=== PATIENT | female | born 1945 | race Caucasian/White ===

== ENCOUNTER 2017-01-03 06:57 | Inpatient (IN) | payer MEDICARE, BC ==
[2016-12-23 13:47] LABS: BASOPHILS 0.5 %; BASOPHILS ABSOLUTE 0.04 10/3/uL (0.0-0.16); EOSINOPHILS 1.1 %; HEMATOCRIT 38.4 % (36.0-48.0); HEMOGLOBIN 11.7 g/dL (12.0-16.0); IMMATURE GRANULOCYTES 0.2 %; IMMATURE GRANULOCYTES ABSOLUTE 0.02 10/3/uL (0.0-0.11); LYMPHOCYTES 28.3 %; LYMPHOCYTES ABSOLUTE 2.51 10/3/uL (0.67-4.30); MEAN CORPUS HGB CONC 30.5 g/dL (32.0-36.0); MEAN CORPUSCULAR HEMOGLOB 33.8 pg (26.0-34.0); MEAN PLATELET VOLUME 10.7 fL (9.2-13.0); MONOCYTES 8.1 %; MONOCYTES ABSOLUTE 0.72 10/3/uL (0.21-1.20); NEUTROPHILS 61.8 %; NEUTROPHILS ABSOLUTE 5.47 10/3/uL (2.02-8.40); RBC DISTRIBUTION WIDTH 14.9 % (12.0-16.0); RED CELL COUNT 3.46 10/6/uL (4.0-5.6)
[2016-12-23 13:48] LABS: MANUAL DIFF NO %; PLATELET COUNT 212 10/3/uL (150-400); WHITE BLOOD CELLS 8.9 10/3/uL (4.5-10.5)
[2016-12-23 13:53] LABS: ASCORBIC ACID (UR NOT ORDER) NEG (NEG); BILIRUBIN, URINE NEGATIVE (NEG); KETONE, URINE NEGATIVE (NEG); LEUKOCYTE ESTERASE(NOT OR NEG (NEG); WBC (NOT ORDERED) (RFLEX) 2 (0-5)
[2016-12-23 13:54] LABS: INTERNATIONAL NORMAL RATI 1.3 UNITS (-)
[2016-12-23 13:55] LABS: PROTIME (NOT ORD) 16.1 SEC (12.0-14.5)
[2016-12-23 14:03] LABS: B NATRIURETIC PEPTIDE (BNP) 560.7 PG/ML (< 100.0)
[2016-12-23 14:05] LABS: PLATELET ESTIMATE ADQ (ADEQUATE)
[2016-12-23 14:14] LABS: BUN (BLOOD UREA NITROGEN) 41 MG/DL (6-23); CALCIUM, SERUM 8.3 MG/DL (8.5-10.4); CHLORIDE, SERUM 104 MMOL/L (96-112); CO2 (CARBON DIOXIDE) 25 MMOL/L (24-34); GFR AFRICAN AMERICAN 19 ML/MIN (>=60); GFR NON AFRICAN AMERICAN 17 ML/MIN (>=60); GLUCOSE, SERUM 94 MG/DL (60-99); POTASSIUM, SERUM 4.9 MMOL/L (3.5-5.3); SODIUM, SERUM 138 MMOL/L (135-148)
[2016-12-23 21:28] LABS: GLYCOHEMOGLOBIN (HbA1c) 4.9 % (4.7-6.1)
[~2017-01-03] VITALS: Ht 165.1 cm; Wt 75.7 kg
--- NOTE | ~2017-01-03 | OP ---
Record Of Operation [address] [place]. [address] NAME: YASMANY JALLOH : 41 STATUS : ADM IN PAT#: [id number] AGE: 71 ADM/REG DATE : 01/03/17 MR#: [id number] REPORT SERV DATE: 01/04/17 DICTATED BY: MICHAEL REGAN DATE: 01/03/17 REPORT STATUS : Draft TRANSCRIBED BY: MODL DATE: 01/03/17 DATE OF PROCEDURE: 01/03/2017 PREOPERATIVE DIAGNOSES: 1. Aortic valve stenosis. 2. Acute on chronic diastolic heart failure. 3. Chronic persistent atrial fibrillation. 4. History of pulmonary embolism with DVT. 5. Chronic kidney disease, stage IV. 6. History of nephrectomy for metastatic renal cell carcinoma. 7. Type 2 xsv-nyeqddd-fpxevgixg diabetes mellitus. 8. Hypertension. 9. Hypercholesterolemia. 10.Coronary artery disease. 11.History of CSF otorrhea. POSTOPERATIVE DIAGNOSES: 1. Aortic valve stenosis. 2. Acute on chronic diastolic heart failure. 3. Chronic persistent atrial fibrillation. 4. History of pulmonary embolism with DVT. 5. Chronic kidney disease, stage IV. 6. History of nephrectomy for metastatic renal cell carcinoma. 7. Type 2 ign-gwvzhir-doutcarvm diabetes mellitus. 8. Hypertension. 9. Hypercholesterolemia. 10.Coronary artery disease. 11.History of CSF otorrhea. PROCEDURE PERFORMED: 1. Right transfemoral using a 26 mm S3 pericardial valve (Zeke). 2. Right femoral artery ProGlide closure of arteriotomy site x2. 3. Left internal jugular placement of temporary ventricular pacemaker. 4. Aorto right iliofemoral angiogram. 5. Transthoracic echocardiography. SURGEONS: 1. Michael Regan M.D. 2. Mina Polo M.D. 3. Chip Doll M.D. PHOTO TECH: Elfego Gutierrez M.D., Ph.D, F.A.C.C. PRIMARY PHOTO TECH: Bonny Watkins M.D. PRIMARY PHYSICIAN: Jay Quinn M.D. Record Of Operation [address] [place]. [address] NAME: YASMANY JALLOH : 41 STATUS : ADM IN PAT#: [id number] AGE: 71 ADM/REG DATE : 01/03/17 MR#: [id number] REPORT SERV DATE: 01/04/17 DICTATED BY: MICHAEL REGAN DATE: 01/03/17 REPORT STATUS : Draft TRANSCRIBED BY: ZULEYKA DATE: 01/03/17 AIRLINE PILOT FLIGHT INSTRUCTOR: Bishnu De Luna M.D. INDICATIONS: This is a very pleasant 71-year-old female, who has multiple medical issues as listed above. She has a chronic CSF leak with otorrhea bilaterally. Plans are for surgery. She has been having worsening dyspnea with exertion and fatigue and underwent repeat echocardiography which demonstrated progression of her aortic valve stenosis too severe, with a valve area of 0.5 sq cm and mean gradient of 25 mmHg. Because of her multiple medical other problems, she was referred for evaluation for aortic valve replacement. We saw the patient, and she was judged to be at elevated risk for aortic valve replacement. Her SCS predicted risk of mortality was 9.2%, morbidity-mortality of 38%. The patient is at high risk, in addition, to frailty and weakness, placed this patient in unacceptable risk for surgical aortic valve replacement. She was offered TAVR. After discussing operations, indication, risks with the patient and her family, they wished to proceed. FINDINGS AT OPERATION: 1. Rapid ventricular pacing time is 24 seconds. 2. Time of TAVR deployment was 1522. 3. Cardiac output pre-deployment 2.3, post deployment 3.2 liters per minute. 4. Pre deployment valve area of 0.22. Post deployment valve area 1.82 sq cm. 5. Pre-implant aortic pressures: Systolic 98, diastolic 57, mean 74 mmHg. Post-implant aortic pressures: Systolic 116, diastolic 59, mean 81 mmHg. 6. Pre-implant aortic valve gradient mean 38, peak 57 mmHg. Post-implant AV gradient mean 4, peak 5 mmHg. 7. Total contrast volume used 60 mL. 8. Fluro time was 17.7 minutes. ESTIMATED BLOOD LOSS: Less than 50 mL. Total mGy use 945. AI index was 40. PATHOLOGIC SPECIMENS: None. DESCRIPTION OF PROCEDURE: The patient was brought to the operating suite from Phase II where she is receiving preoperative fluids. The left IJ catheter was placed by Dr. Smith along with the Enterprise in the right IJ. The left IJ was for temporary pacemaker wire placement. The patient was transferred to the hybrid operating table and made comfortable. She was then sedated using Diprivan and monitored anesthesia care. The left IJ ventricular pacing catheter was advanced into the ventricle and positioned. Output thresholds were acceptable and the lead secured in place. The patient's abdomen, groin, and legs were prepped with Hibiclens and ChloraPrep and draped with Ioban sterile sheets. Micro needle puncture of the left femoral artery and right femoral artery was performed. Micro catheter placement was performed of all 3 vessels and confirmatory angiography was performed to confirm access. Then, each catheterization site had a 6-Icelandic introducer Record Of Operation [facility] [address] [facility] [place]. [address] NAME: YASMANY JALLOH : 41 STATUS : ADM IN [facility]#: [id number] AGE: 71 ADM/REG DATE : 01/03/17 MR#: [id number] REPORT SERV DATE: 01/04/17 DICTATED BY: MICHAEL REGAN DATE: 01/03/17 REPORT STATUS : Draft TRANSCRIBED BY: MODManda DATE: 01/03/17 placed over guidewire. Reason for two introducers on the left side was for two pigtail catheter placements to reduce need for contrast for positioning the valve. The two pigtail catheters were then advanced up to the left femoral artery sheath into the ascending aorta position in the non and right coronary cusps. We then confirmed deployment angles for the operation. A J-wire was placed up the right femoral artery sheath and the sheath was removed. Two ProGlide closure devices were then placed in the right femoral artery and secured. A 6-Icelandic sheath was then placed over the guidewire into the right femoral artery and then an utility catheter was then advanced up over the J-wire into the ascending aorta. The J- wire was removed and the Lunderquist wire placed in the ascending aorta. Next, the Reeves introducer sheath was advanced into the descending thoracic aorta under fluoroscopic visualization. Heparin had been administered by Anesthesia and ACT was acceptable. Then, a L1 catheter was advanced over the Lunderquist wire into the ascending aorta and a Lunderquist wire removed. Straight wire was then placed through the AL1 catheter advanced into the left ventricle through the stenotic valve. The valve was then crossed with a catheter, and this was exchanged for a pigtail catheter in the left ventricle. Then simultaneous pressure measurements were made in the left ventricle and ascending aorta and recorded. Next, the extra stiff wire was advanced up the right femoral pigtail catheter into the left ventricle. The pigtail catheter was then removed. The Reeves 26 mm S3 valve was brought up to the field on the delivery system. Visual confirmation of orientation of the valve was performed. The valve delivery system and valve were then advanced up the sheath into the descending thoracic aorta. The balloon was then backed onto the valve delivery system. We then advanced the delivery system up over the arch of the aorta, into the ascending aorta. At this time, a time-out was made for confirmation of deployment steps and individuals. Once this was accomplished, the valve delivery system was backed onto the limerock tower loader. The prosthetic valve on the delivery system was then placed across the patient's siletz tribe aortic valve. Positioning the valve was then achieved. The pigtail catheters were in place, and blush aortography and contrast aortography was used to confirm positioning the valve. Rapid ventricular pacing was performed and then the valve was deployed into the position. The valve delivery system was then backed into the descending thoracic aorta. The extra stiff wire was left in place. Echocardiography performed by Dr. Gutierrez demonstrating no evidence of perivalvular leak. The valve delivery system was then brought out of the right femoral artery sheath. One of the two pigtail catheters which had been backed into the ascending aorta were removed over guidewire. Next, the sheath was removed from the right femoral artery, and two ProGlide closure systems placed earlier were secured and fully deployed. There was good hemostasis of the right femoral arterial stick site. The remaining pigtail catheter was brought down to the aortic bifurcation and right iliofemoral angiogram was performed and confirmed no evidence of extravasation at the arteriotomy site or limitation of flow down the right leg. Record Of Operation [facility] [address] [facility] [place]. [address] NAME: YASMANY JALLOH : 41 STATUS : ADM IN [facility]#: [id number] AGE: 71 ADM/REG DATE : 01/03/17 MR#: [id number] REPORT SERV DATE: 01/04/17 DICTATED BY: MICHAEL REGAN DATE: 01/03/17 REPORT STATUS : Draft TRANSCRIBED BY: MODL DATE: 01/03/17 We then attempted deployment of a single ProGlide in one of the right femoral arterial sheath sites. Briefly, J wire was advanced over the pigtail catheter from the arteriogram. The pigtail catheter was removed, and then the 6-Icelandic introducer removed. The ProGlide was placed in the artery but could not be deployed successfully. At this point, we just replaced the 6-Icelandic introducer sheath and secured this to the patient. We then removed the Enterprise-Lupe catheter and left the temporary ventricular pacing wire in place. The patient tolerated the procedure well. There were no complications. Sponge and needle counts were correct. DISPOSITION: The patient was taken to the intensive care unit in stable condition with dopplerable pulses in both feet. KEVIN/ZULEYKA Michael Regan M.D. / [id number] CC: Raven Crook M.D. Lisa Gail Carkner, M.D. Dennis Leonard, M.D. Joseph Watlington, M.D.
--- NOTE | ~2017-01-03 | CN ---
Consultation Report [facility] [address] [place]. [address] NAME: YASMANY JALLOH : 41 STATUS : ADM IN [facility]#: [id number] AGE: 71 ADM/REG DATE : 01/03/17 MR#: [id number] REPORT SERV DATE: 01/03/17 DICTATED BY: MORTEZA FREED DATE: 01/03/17 REPORT STATUS : Draft TRANSCRIBED BY: MODL DATE: 01/03/17 CONSULTATION DATE OF CONSULTATION: 01/03/2017 CONSULTING GROUP: [facility]. CHIEF COMPLAINT: Scheduled for TAVR, elevated heart rate, atrial fibrillation with RVR, and hypotension. HISTORY OF PRESENT ILLNESS: Ms. Jalloh is a 71-year-old female who is a patient of Dr. De Luna with CKD, stage 4; history of renal cell carcinoma, status post right nephrectomy in 2005 and the left kidney ablation, all by Dr. Johnson, who has aortic stenosis and was scheduled for TAVR today. Dr. Regan asked me to see the patient for CKD 4 management. The patient is currently on IV fluid lactated Ringer's at 75 mL an hour. She is also getting a Cardene drip for managing blood pressure, acute as well as diltiazem drip for her atrial fibrillation with RVR. Her heart rate is still in the 120s, but her blood pressure has reduced, so I spoke to DONOR SERVICES TECHNICIAN about decreasing the Cardene drip to wean off if okay with Cardiology. She is a good historian, resting in bed, mild nervousness, but otherwise stable. PAST MEDICAL HISTORY: Atrial fibrillation; CKD, stage 4; patient of Dr. De Luna. Right nephrectomy in 2005, left kidney ablation, psoriatic arthritis, some lymph node involvement based on her renal cell carcinoma, and aortic stenosis. FAMILY HISTORY: Father with history of myocardial infarction. SOCIAL HISTORY: Lives in [place], good family support. No tobacco or alcohol use. REVIEW OF SYSTEMS: Positive for nervousness. All other review of systems negative at this time. I spoke to patient and family and DONOR SERVICES TECHNICIAN at the bedside. PHYSICAL EXAMINATION: VITAL SIGNS: Temperature 97.7, pulse of 82, blood pressure 163/71. GENERAL: Alert and oriented x3, no acute distress. EYES: Extraocular movements intact. No conjunctivitis. ENT: [place], dry oropharynx. No facial droop. LYMPH: No supraclavicular or cervical lymphadenopathy. SKIN: No rash or lesions. HEART: S1, S2. Regular. No edema. LUNGS: Clear to auscultation anteriorly. No tachypnea. ABDOMEN: Soft, nontender. Positive bowel sounds. EXTREMITIES AND PSYCH: The patient has a history of psoriatic arthritis. I do not see any Consultation Report [address] [place]. [address] NAME: YASMANY JALLOH : 41 STATUS : ADM IN PAT#: [id number] AGE: 71 ADM/REG DATE : 01/03/17 MR#: [id number] REPORT SERV DATE: 01/03/17 DICTATED BY: MORTEZA FREED DATE: 01/03/17 REPORT STATUS : Draft TRANSCRIBED BY: ZULEYKA DATE: 01/03/17 active joints at this time that are inflamed. PA catheter is in place in the right IJ. She has normal mood and affect. LABS: These are from 12/23; potassium 4.9, creatinine 2.7, BUN 41, calcium 8.3. Her chest x ray, PA and lateral, shows no acute cardiopulmonary disease. ASSESSMENT AND PLAN: Ms. Jalloh is a 71-year-old female with chronic kidney disease, stage 4; patient of Dr. De Luna; aortic stenosis, scheduled for TAVR; atrial fibrillation with rapid ventricular response; history of metastatic renal cell carcinoma with right nephrectomy and left ablation. Renal. The patient is a high risk for contrast-induced nephropathy. I agree with preop IV fluid lactated Ringer at 75 mL an hour. We will check stat labs now. I would recommend changing it to IV fluid normal saline at 75 mL an hour postop for contrast nephropathy prophylaxis. Check urine studies after her procedure. UA, spot urine urea, and spot urine creatinine. Keep Champagne in for strict I's and O's measurement postprocedure. I noticed PA diastolic is 20 and her CVP is about 9, which puts her at euvolemia. Her baseline creatinine is between 2.2-2.6. I discussed with family and patient about careful monitoring of her urine output and kidney function as she is a high risk for contrast-induced nephropathy, which may lead to need for either diuretics, fluids, or dialysis. RENETTA/MODL Morteza Freed M.D. / [id number] CC: Raven Crook M.D.
--- NOTE | ~2017-01-03 | OP ---
Record Of Operation [facility] [address] [place]. [address] NAME: YASMANY JALLOH : 41 STATUS : ADM IN PAT#: [id number] AGE: 71 ADM/REG DATE : 01/03/17 MR#: [id number] REPORT SERV DATE: 01/03/17 DICTATED BY: MINA DIETZ DATE: 01/03/17 REPORT STATUS : Draft TRANSCRIBED BY: MODManda DATE: 01/03/17 DATE OF PROCEDURE: 01/03/2017 PROCEDURE PERFORMED: 1. Transcatheter aortic valve implantation using a 26 mm Reeves Zeke S3 valve via a right transfemoral approach. 2. Temporary transvenous pacemaker placement right internal jugular vein to right ventricle. 3. Iliac angiogram. 4. Transthoracic echocardiogram. 5. ProGlide closure x2, right femoral artery successful. 6. Attempted ProGlide closure left femoral artery unsuccessful. SURGEONS: 1. Christian Regan M.D. 2. Mina Dietz M.D. 3. Chip Doll M.D. METAL DEALER: Arcelia. ECHOCARDIOGRAPHY: Elfego Gutierrez M.D., Ph.D, F.A.C.C. ANESTHESIA: MAC and local. SPECIMEN REMOVED: None. FLUOROSCOPY TIME: 17.7 minutes, mGy 945. CONTRAST: 60 mL nonionic. ESTIMATED BLOOD LOSS: Less than 50 mL. COMPLICATIONS: None. PREOPERATIVE DIAGNOSES: 1. Severe aortic stenosis with aortic valve area 0.5 sq cm. 2. Symptomatic acute on chronic diastolic congestive heart failure. 3. High surgical risk with STS score 9.2% mortality and 37.8% morbidity and mortality. 4. Additional increased surgical risk not reflected in her scores including frailty, very poor strength, and moderate pulmonary hypertension. 5. History of atrial fibrillation. 6. History of deep venous thrombosis and pulmonary thromboembolism. 7. Chronic kidney disease, stage 4. 8. Metastatic renal cell cancer. 9. Cerebrospinal fluid leak persistent. 10.Diabetes mellitus. Record Of Operation [facility] [address] [place]. [address] NAME: YASMANY JALLOH : 41 STATUS : ADM IN PAT#: [id number] AGE: 71 ADM/REG DATE : 01/03/17 MR#: [id number] REPORT SERV DATE: 01/03/17 DICTATED BY: MINA DIETZ DATE: 01/03/17 REPORT STATUS : Draft TRANSCRIBED BY: MODManda DATE: 01/03/17 11.Hypertension. 12.Hyperlipidemia. POSTOPERATIVE DIAGNOSES: 1. Severe aortic stenosis with aortic valve area 0.5 sq cm. 2. Symptomatic acute on chronic diastolic congestive heart failure. 3. High surgical risk with STS score 9.2% mortality and 37.8% morbidity and mortality. 4. Additional increased surgical risk not reflected in her scores including frailty, very poor strength, and moderate pulmonary hypertension. 5. History of atrial fibrillation. 6. History of deep venous thrombosis and pulmonary thromboembolism. 7. Chronic kidney disease, stage 4. 8. Metastatic renal cell cancer. 9. Cerebrospinal fluid leak persistent. 10.Diabetes mellitus. 11.Hypertension. 12.Hyperlipidemia. 13.No significant aortic insufficiency by echo postoperatively. DATA FOR THE VALVE REGISTRY: Time of valve deployment 1522 hours. Total rapid pacing time 24 seconds. Preprocedure mean gradient 38, peak gradient 57, cardiac output of 2.3 L/minute for an aortic valve area of 0.2 sq cm. Postprocedure mean gradient 4, peak gradient 5, cardiac output 3.2 L/minute for aortic valve area of 1.8 sq cm. AI index of 40. BACKGROUND: Ms. Jalloh is a very pleasant 71-year-old, white woman, patient of Dr. Watkins, who has had severe aortic stenosis symptomatic with functional class III diastolic congestive heart failure. She was found to be at high surgical risk with STS score in excess of 9%, mortality of 38% morbidity and mortality. She was seen by two cardiac surgeons, Dr. Regan and Dr. Veloz, who agreed that she was at high surgical risk. She had additional factors not reflected in her scores including frailty, very poor strength, and moderate pulmonary hypertension. She was offered transcatheter aortic valve implantation. The risks, benefits, and complications were discussed with Ms. Jalloh and her family. She understood them and those of her alternatives and wished to proceed. Questions were answered. TECHNIQUE: After informed written consent was obtained from Ms. Jalloh, she was brought to the hybrid suite on the afternoon of 01/03/2017 in the fasting state. The time-out was performed and correct patient and operative plan were confirmed. The groins were prepped and draped in usual sterile fashion. Local anesthesia was accomplished with 1% lidocaine. Using modified Seldinger technique and a micropuncture set, 6-Salvadorean sheath was placed in the left femoral artery, a second 6-Salvadorean sheath was placed in the left femoral artery, and a 6-Salvadorean sheath was placed in the right femoral artery all with excellent blood return. Femoral angiograms using the micro sheath revealed good sticks in the common femoral artery thought suitable for closure. The inferiormost one on the left was close to the bifurcation. The sheaths were double flushed and left in place. A 5-Salvadorean balloon-tipped pacer was placed from the right IJ introducer sheath to the right ventricle under fluoroscopic guidance. Threshold was checked, which was less than 1 milliamp. This was Record Of [address] [place]. [address] NAME: YASMANY JALLOH : 41 STATUS : ADM IN [facility]#: [id number] AGE: 71 ADM/REG DATE : 01/03/17 MR#: [id number] REPORT SERV DATE: 01/03/17 DICTATED BY: MINA DIETZ DATE: 01/03/17 REPORT STATUS : Draft TRANSCRIBED BY: ZULEYKA DATE: 01/03/17 then set aside. Next, two pigtail catheters, the straight and an angled were placed in the non and right coronary cusps respectively. The valve angle was obtained. Using the two pigtail catheters and the heavy calcification visible under fluoroscopy. Next, ProGlide closure devices were placed using a pre-close technique at 10 o'clock and 2 o'clock in the usual fashion. The sheath was then exchanged for the Reeves sheath, which was double flushed and left in place. Next, the 6-Salvadorean AL1 diagnostic catheter was advanced to the central aorta under fluoroscopic guidance. The catheter was withdrawn, catheter double flushed. Pressure recording was obtained. The patient was heparinized to an ACT of greater than 250. Next, a straight guidewire was used and the aortic valve was crossed with relative ease and the catheter was then placed in the LV position, and using an exchange J guidewire, the catheter was exchanged for a pigtail catheter. Simultaneous LV and aortic pressures were then obtained. Cardiac output was performed. Valve area was determined. Next, a preshaped extra stiff wire was placed in the left ventricle and the catheter was withdrawn from the body. When all was in readiness, the 26 mm Reeves Zeke S3 valve was prepped and brought to the table, orientation was confirmed. The valve was then advanced to the descending aorta under fluoroscopic guidance. The balloon was then brought back to the valve in the usual fashion. Next, the valve was advanced around the aortic arch using the flex device on the introducing system and brought to the ascending aorta. The valve was then brought across the aortic valve and into position. The pusher was brought back. Fine adjustment was performed using rapid pacing and power injection. A single ascending aortogram was performed which demonstrated good valve position. When all was in readiness, the sequence was commenced. Respirations were held. Rapid pacing was performed. The pressure fell. The valve was inflated with complete balloon and valve inflation. The balloon was then deflated. Pacing was ceased. Respirations were resumed. There were good valve position and good recovery of pressure. The pigtail catheters were then brought back. Transthoracic echocardiography was performed, which revealed no significant aortic insufficiency and good valve function. Next, the pigtail catheter was replaced and simultaneous LV and aortic pressures were obtained. There was no significant gradient. Pullback recording was obtained and the pressures matched. An ascending aortogram was not performed due to contrast dye limitation with chronic kidney disease. One of the pigtail catheter was removed from body over a guidewire. The other was brought to the descending aorta just above the iliac bifurcation. The Reeves sheath was removed and the ProGlide sutures were tied with good hemostasis. There was no bleeding and no hematoma. Iliac angiogram was performed which demonstrated good patency of the iliofemoral system on the right with no evidence of dissection or distal embolization. The pigtail catheter was then disengaged from the body over a guidewire. ProGlide sutures were attempted on the left but were unsuccessful. The sheaths were then left in place for removal by nursing personnel later via manual compression. The patient tolerated the procedure well without apparent complication. She was then returned to her room in good condition for access management. Recommendations were for resumption of her Eliquis anticoagulation and possible single antiplatelet agent and echocardiographic followup. TRACI/ZULEYKA Mina Dietz, Record Of Operation [address] [place]. [address] NAME: YASMANY JALLOH : 41 STATUS : ADM IN PAT#: [id number] AGE: 71 ADM/REG DATE : 01/03/17 MR#: [id number] REPORT SERV DATE: 01/03/17 DICTATED BY: MINA DIETZ DATE: 01/03/17 REPORT STATUS : Draft TRANSCRIBED BY: ZULEYKA DATE: 01/03/17 Raven / [id number] CC: Raven Crook M.D.
[~2017-01-03 06:57] MED LIST: ACETAMINOPHEN PO; AFINITOR10 MG PO; ARIXTRA SC; ARIXTRA2.5 SC; ARIXTRA7.5 SC; ASAB PO; ASAEC PO; C5 PO; CALTRA600D PO; CARDCD240 PO; CIP5 PO; CRESTOR10 PO; DEMA20 PO; ELIQUIS 2.5 MG2.5 MG PO; ELIQUIS 5 MG TAB5 MG PO; GLUCXL2.5 PO; GLUCXL5 PO; HYDROCODONE PO; INLYTA5 MG PO; IRON325 MG PO; JANTOVEN6 MG PO; KLOR-CON 1010 MEQ PO; KLOR-CON M2020 MEQ PO; L40 PO; LAN125 PO; LIPITOR40 PO; LOP25 PO; LOP50 PO; LORTAB 5 PO; LOVENOX1C SC; LOVENOX80 SC; MICARDIS HC1 PO; MICARDIS40 PO; MIRALAXPKT PO; MULTIPLE VIT PO; NORCO1 TAB PO; OXYIR5 MG PO; PCET PO; PR25 PO; SELENIUM PO; SPIRO25 PO; T PO; TOPROL XL200 MG PO; TOPXL100 PO; TRANDAT100 PO; VITAMIN D1000 UNI1 PO; VOTRIENT200 MG PO; ZOFRAN4 PO; [UNRECOGNIZED DRUG - OTHER]
[2017-01-03 12:49] LABS: BASOPHILS 0.2 %; BASOPHILS ABSOLUTE 0.01 10/3/uL (0.0-0.16); EOSINOPHILS 1.3 %; EOSINOPHILS ABSOLUTE 0.07 10/3/uL (0.0-0.53); IMMATURE GRANULOCYTES 0.2 %; IMMATURE GRANULOCYTES ABSOLUTE 0.01 10/3/uL (0.0-0.11); LYMPHOCYTES ABSOLUTE 0.97 10/3/uL (0.67-4.30); MANUAL DIFF NO %; MEAN CORPUS HGB CONC 30.3 g/dL (32.0-36.0); MEAN CORPUSCULAR HEMOGLOB 33.8 pg (26.0-34.0); MEAN CORPUSCULAR VOLUME 111.5 fL (80-100); MEAN PLATELET VOLUME 10.6 fL (9.2-13.0); MONOCYTES ABSOLUTE 0.54 10/3/uL (0.21-1.20); NEUTROPHILS 70.3 %; PLATELET COUNT 128 10/3/uL (150-400); RBC DISTRIBUTION WIDTH 15.9 % (12.0-16.0); RED CELL COUNT 2.96 10/6/uL (4.0-5.6); WHITE BLOOD CELLS 5.4 10/3/uL (4.5-10.5)
[2017-01-03 13:02] LABS: A/G RATIO 0.9 (0.7-1.9); ALBUMIN 2.9 G/DL (3.5-5.0); ALKALINE PHOSPHATASE 84 U/L (45-117); BUN (BLOOD UREA NITROGEN) 30 MG/DL (6-23); CALCIUM, SERUM 8.9 MG/DL (8.5-10.4); CHLORIDE, SERUM 112 MMOL/L (96-112); CO2 (CARBON DIOXIDE) 25 MMOL/L (24-34); CREATININE 1.81 MG/DL (0.55-1.02); GFR AFRICAN AMERICAN 32 ML/MIN (>=60); GFR NON AFRICAN AMERICAN 27 ML/MIN (>=60); GLOBULIN 3.2 G/DL (2.5-4.1); GLUCOSE, SERUM 83 MG/DL (60-99); PHOSPHORUS, SERUM 4.3 MG/DL (2.5-4.5); POTASSIUM, SERUM 4.7 MMOL/L (3.5-5.3); SGOT(AST) 10 U/L (5-40); SGPT(ALT) 13 U/L (5-65); SODIUM, SERUM 142 MMOL/L (135-148); TOTAL BILIRUBIN 0.8 MG/DL (0-1.2); TOTAL PROTEIN 6.1 G/DL (6.0-8.5)
[2017-01-03 13:04] LABS: INTERNATIONAL NORMAL RATI 1.1 UNITS (-); PARTIAL THROMBO TIME 33.3 SEC (22.5-37.2); PROTIME (NOT ORD) 13.8 SEC (12.0-14.5)
[2017-01-03 13:24] LABS: PLATELET ESTIMATE SLT DEC (ADEQUATE); POIKILOCYTOSIS 1+ (5-10/OIF) (0-5/OIF); TEARDROP SHAPED RBCS OCC (0-2/OIF)
[2017-01-03 17:09] LABS: HEMOGLOBIN 8.3 g/dL (12.0-16.0); PLATELET COUNT 105 10/3/uL (150-400)
[2017-01-03 17:10] LABS: HEMATOCRIT 27.5 % (36.0-48.0)
[2017-01-03 17:16] LABS: INTERNATIONAL NORMAL RATI 1.2 UNITS (-); PARTIAL THROMBO TIME 35.6 SEC (22.5-37.2); PROTIME (NOT ORD) 15.1 SEC (12.0-14.5)
[2017-01-03 17:22] LABS: BUN (BLOOD UREA NITROGEN) 28 MG/DL (6-23); CALCIUM, SERUM 8.3 MG/DL (8.5-10.4); CHLORIDE, SERUM 113 MMOL/L (96-112); CO2 (CARBON DIOXIDE) 25 MMOL/L (24-34); CREATININE 1.78 MG/DL (0.55-1.02); GFR AFRICAN AMERICAN 32 ML/MIN (>=60); GFR NON AFRICAN AMERICAN 28 ML/MIN (>=60); GLUCOSE, SERUM 85 MG/DL (60-99); POTASSIUM, SERUM 5.2 MMOL/L (3.5-5.3); SODIUM, SERUM 143 MMOL/L (135-148)
[2017-01-03 22:34] LABS: ASCORBIC ACID (UR NOT ORDER) NEG (NEG); BILIRUBIN, URINE NEGATIVE (NEG); KETONE, URINE NEGATIVE (NEG); WBC (NOT ORDERED) (RFLEX) 1 (0-5)
[2017-01-03 22:35] LABS: LEUKOCYTE ESTERASE(NOT OR TRACE (NEG)
[2017-01-03 22:54] LABS: CREATININE, URINE 60.2 MG/DL
[2017-01-04 03:39] LABS: BASOPHILS 0.2 %; BASOPHILS ABSOLUTE 0.01 10/3/uL (0.0-0.16); EOSINOPHILS 0.4 %; EOSINOPHILS ABSOLUTE 0.02 10/3/uL (0.0-0.53); HEMATOCRIT 26.8 % (36.0-48.0); HEMOGLOBIN 8.1 g/dL (12.0-16.0); IMMATURE GRANULOCYTES 0.2 %; IMMATURE GRANULOCYTES ABSOLUTE 0.01 10/3/uL (0.0-0.11); LYMPHOCYTES 14.4 %; LYMPHOCYTES ABSOLUTE 0.67 10/3/uL (0.67-4.30); MEAN CORPUS HGB CONC 30.2 g/dL (32.0-36.0); MEAN CORPUSCULAR HEMOGLOB 34.3 pg (26.0-34.0); MEAN CORPUSCULAR VOLUME 113.6 fL (80-100); MEAN PLATELET VOLUME 10.2 fL (9.2-13.0); MONOCYTES 11.4 %; MONOCYTES ABSOLUTE 0.53 10/3/uL (0.21-1.20); NEUTROPHILS 73.4 %; NEUTROPHILS ABSOLUTE 3.41 10/3/uL (2.02-8.40); PLATELET COUNT 100 10/3/uL (150-400); RBC DISTRIBUTION WIDTH 16.1 % (12.0-16.0); WHITE BLOOD CELLS 4.7 10/3/uL (4.5-10.5)
[2017-01-04 03:40] LABS: MANUAL DIFF NO %; RED CELL COUNT 2.36 10/6/uL (4.0-5.6)
[2017-01-04 03:46] LABS: INTERNATIONAL NORMAL RATI 1.2 UNITS (-)
[2017-01-04 03:52] LABS: CHLORIDE, SERUM 113 MMOL/L (96-112); CO2 (CARBON DIOXIDE) 21 MMOL/L (24-34); CREATININE 1.84 MG/DL (0.55-1.02); GFR AFRICAN AMERICAN 31 ML/MIN (>=60); GFR NON AFRICAN AMERICAN 27 ML/MIN (>=60); GLUCOSE, SERUM 77 MG/DL (60-99); POTASSIUM, SERUM 5.6 MMOL/L (3.5-5.3); SODIUM, SERUM 144 MMOL/L (135-148)
[2017-01-04 03:53] LABS: BUN (BLOOD UREA NITROGEN) 32 MG/DL (6-23)
[2017-01-04 03:59] LABS: PLATELET ESTIMATE SLT DEC (ADEQUATE)
[2017-01-04 12:00] LABS: HEMATOCRIT 25.9 % (36.0-48.0); HEMOGLOBIN 7.7 g/dL (12.0-16.0)
[2017-01-04 13:36] LABS: BUN (BLOOD UREA NITROGEN) 34 MG/DL (6-23); CHLORIDE, SERUM 113 MMOL/L (96-112); CO2 (CARBON DIOXIDE) 23 MMOL/L (24-34); CREATININE 2.06 MG/DL (0.55-1.02); GFR AFRICAN AMERICAN 27 ML/MIN (>=60); GFR NON AFRICAN AMERICAN 23 ML/MIN (>=60); GLUCOSE, SERUM 103 MG/DL (60-99); POTASSIUM, SERUM 4.8 MMOL/L (3.5-5.3); SODIUM, SERUM 143 MMOL/L (135-148)
[2017-01-04 16:14] LABS: HEMATOCRIT 26.3 % (36.0-48.0); HEMOGLOBIN 7.6 g/dL (12.0-16.0)
[2017-01-04 16:24] LABS: POTASSIUM, SERUM 4.9 MMOL/L (3.5-5.3)
[2017-01-04 20:49] LABS: RETICULOCYTE COUNT 3.3 % (0.5-2.5); RETICULOCYTE COUNT ABSOLUTE 72.6 10/3/uL (20.2-119.8)
[2017-01-04 21:50] LABS: FOLATE 6.2 NG/ML (>5.2)
[2017-01-05 04:03] LABS: BASOPHILS 0.2 %; BASOPHILS ABSOLUTE 0.01 10/3/uL (0.0-0.16); EOSINOPHILS 1.9 %; EOSINOPHILS ABSOLUTE 0.08 10/3/uL (0.0-0.53); HEMATOCRIT 24.6 % (36.0-48.0); HEMOGLOBIN 7.4 g/dL (12.0-16.0); IMMATURE GRANULOCYTES 0.2 %; IMMATURE GRANULOCYTES ABSOLUTE 0.01 10/3/uL (0.0-0.11); LYMPHOCYTES 16.6 %; LYMPHOCYTES ABSOLUTE 0.71 10/3/uL (0.67-4.30); MEAN CORPUS HGB CONC 30.1 g/dL (32.0-36.0); MEAN CORPUSCULAR HEMOGLOB 34.4 pg (26.0-34.0); MEAN CORPUSCULAR VOLUME 114.4 fL (80-100); MEAN PLATELET VOLUME 10.9 fL (9.2-13.0); MONOCYTES 12.4 %; MONOCYTES ABSOLUTE 0.53 10/3/uL (0.21-1.20); NEUTROPHILS 68.7 %; NEUTROPHILS ABSOLUTE 2.95 10/3/uL (2.02-8.40); PLATELET COUNT 96 10/3/uL (150-400); RBC DISTRIBUTION WIDTH 16.3 % (12.0-16.0); RED CELL COUNT 2.15 10/6/uL (4.0-5.6); WHITE BLOOD CELLS 4.3 10/3/uL (4.5-10.5)
[2017-01-05 04:04] LABS: MANUAL DIFF NO %
[2017-01-05 04:15] LABS: ALBUMIN 2.4 G/DL (3.5-5.0); BUN (BLOOD UREA NITROGEN) 33 MG/DL (6-23); CALCIUM, SERUM 8.1 MG/DL (8.5-10.4); CHLORIDE, SERUM 113 MMOL/L (96-112); CO2 (CARBON DIOXIDE) 27 MMOL/L (24-34); CREATININE 2.05 MG/DL (0.55-1.02); GFR AFRICAN AMERICAN 27 ML/MIN (>=60); GFR NON AFRICAN AMERICAN 23 ML/MIN (>=60); GLUCOSE, SERUM 96 MG/DL (60-99); PHOSPHORUS, SERUM 4.3 MG/DL (2.5-4.5); POTASSIUM, SERUM 5.2 MMOL/L (3.5-5.3); SODIUM, SERUM 146 MMOL/L (135-148)
[2017-01-05 04:29] LABS: MACROCYTES 1+ (5-10/OIF) (0-5/OIF); PLATELET ESTIMATE DEC (ADEQUATE)
[2017-01-05 04:30] LABS: TEARDROP SHAPED RBCS FEW (3-10/OIF)
== END 2017-01-05 18:55 | disposition home or self-care (01) | DRG 266 ==
LOC: SDC/OF 06:57 → CVICU 06:57
PROVIDERS: Internal Medicine Cardiovascular Disease; Internal Medicine Nephrology; Nurse Practitioner Adult Health; Thoracic Surgery (Cardiothoracic Vascular Surgery)
PROC: B246ZZZ Ultrasonography of Right and Left Heart (ICD-10-PCS; 2017-01-03)
PROC: 02RF38Z Replacement of Aortic Valve with Zooplastic Tissue, Percutaneous Approach (ICD-10-PCS; principal; 2017-01-03 12:30)
DX: I35.0 Nonrheumatic aortic (valve) stenosis (principal); I50.33 Acute on chronic diastolic (congestive) heart failure; N18.4 Chronic kidney disease, stage 4 (severe); E11.22 Type 2 diabetes mellitus with diabetic chronic kidney disease; I48.1 Persistent atrial fibrillation; I13.0 Hypertensive heart and chronic kidney disease with heart failure and stage 1 through stage 4 chronic kidney disease, or unspecified chronic kidney disease; K21.9 Gastro-esophageal reflux disease without esophagitis; Z00.6 Encounter for examination for normal comparison and control in clinical research program; Z85.528 Personal history of other malignant neoplasm of kidney; Z90.5 Acquired absence of kidney; Z98.890 Other specified postprocedural states; Z82.49 Family history of ischemic heart disease and other diseases of the circulatory system; Z86.718 Personal history of other venous thrombosis and embolism
CPT/HCPCS: 36415; 71010; 71020; 80048; 80053; 80069; 81001; 82330; 82570; 82607; 82728; 82746; 82747; 82803; 82947; 82962; 83036; 83540; 83550; 83735; 83880; 84100; 84132; 84295; 84443; 84540; 85014; 85018; 85025; 85045; 85049; 85347; 85610; 85730; 86850; 86900; 86901; 87641; 93005; 93306; A9270-GY; C1751; C1769; C1894; J0690; J2250; J2370; J3010; P9045

== ENCOUNTER 2017-01-06 20:14 | Inpatient (IN) | payer MEDICARE, BC ==
[~2017-01-06] VITALS: Ht 165.1 cm; Wt 81.8 kg
--- NOTE | ~2017-01-06 | OP ---
Record Of Operation [facility] [address] [place]. [address] NAME: YASMANY JALLOH : 41 STATUS : ADM IN PAT#: [id number] AGE: 71 ADM/REG DATE : 01/06/17 MR#: [id number] REPORT SERV DATE: 01/07/17 DICTATED BY: LUIS ANGEL WREN DATE: 01/06/17 REPORT STATUS : Draft TRANSCRIBED BY: MODManda DATE: 01/06/17 DATE OF PROCEDURE: 01/06/2017 ELECTROPHYSIOLOGY PROCEDURE NOTE TYPE OF PROCEDURE: Placement of a right femoral transvenous pacemaker. DESCRIPTION OF PROCEDURE: The patient was taken to the cardiac catheterization laboratory in the fasting, nonsedated state. Her right femoral vein was prepped and draped in usual sterile fashion. Following local anesthesia, access was gained to the right femoral vein using a micropuncture kit. We placed a small micropuncture sheath and then upgraded the sheath over a guidewire to a 6-[place] sheath. Through the 6-[place] sheath, we advanced a balloon tipped transvenous pacing catheter to the right ventricular inferior wall. The balloon was let down and testing was performed showing capture at 1 V. The sheath was sewn into skin site, protective covering was placed over the transvenous pacer and the patient was sent back to the CCU. IMPRESSION: Successful implantation of right femoral vein transvenous pacer placed for atrial fibrillation with asystolic pauses resulting in near syncope. FOZIA/ZULEYKA Luis Angel Wren M.D. / [id number] CC: Luis Angel Wren M.D.
--- NOTE | ~2017-01-06 | HP ---
History And Physical [facility] [address] [place]. [address] NAME: YASMANY JALLOH : 41 STATUS : ADM IN [facility]#: [id number] AGE: 71 ADM/REG DATE : 01/06/17 MR#: [id number] REPORT SERV DATE: 01/07/17 DICTATED BY: LUIS ANGEL WREN DATE: 01/06/17 REPORT STATUS : Draft TRANSCRIBED BY: MODManda DATE: 01/06/17 DATE OF ADMISSION: 01/06/2017 HISTORY OF PRESENT ILLNESS: The patient is a pleasant 71-year-old woman being admitted due to bradycardic pauses resulting in near syncopal events. She is status post TAVR for severe aortic stenosis placed on 01/04/2017. She went home the day after. She was placed on metoprolol and Cardizem for rate control of atrial fibrillation and did well the day after the TAVR procedure but began having near syncopal events today. She went to [facility] which demonstrated episodes of asystole as well as what appears to be underlying atrial fibrillation with complete heart block and slow escape rhythms. PAST MEDICAL HISTORY: Her past medical history is notable for TAVR for severe aortic stenosis performed, 01/04/2017, at [facility]; stage 4 CKD; history of nephrectomy for renal cell CA; type 2 diabetes; hypertension; hypercholesterolemia; atrial fibrillation with elevated ventricular response, the patient on Eliquis; and history of coronary disease. FAMILY HISTORY: Noncontributory. SOCIAL HISTORY: Negative for tobacco or alcohol. REVIEW OF SYSTEMS: As noted above. All other systems reviewed and negative. PHYSICAL EXAMINATION: GENERAL: She is in no acute distress currently. VITAL SIGNS: Blood pressure is 120/70, pulse currently 80s, and respirations 16. HEENT: No icterus. Good dentition. NECK: Supple. No masses or thyromegaly LUNGS: Breathing comfortably. No rales or wheezes. COR: She has an irregularly irregular rhythm. ABD: Soft, nondistended, nontender, no hepatosplenomegaly. EXT: No clubbing, cyanosis or edema. Peripheral pulses 2+/=bilaterally. SKIN: Warm and dry. No visible lesions. MS: Chest wall without deformity, no obvious clavicular fractures. NEURO/PSYCH: Oriented X3. No anxiety or depression. IMPRESSION: Patient with recent TAVR for severe aortic stenosis, on rate control medications for atrial fibrillation with rapid ventricular response, and currently is having asystolic pauses and episodes of complete heart block with junctional escape rhythms. We will place a transvenous femoral pacemaker tonight. We will hold metoprolol and Cardizem, but given issues both with the TAVR as well as the tachy-vini issues, she may require a single- chamber permanent pacemaker. We will hold Eliquis for now. /MODL History And Physical [address] [place]. [address] NAME: YASMANY JALLOH : 41 STATUS : ADM IN PAT#: [id number] AGE: 71 ADM/REG DATE : 01/06/17 MR#: [id number] REPORT SERV DATE: 01/07/17 DICTATED BY: LUIS ANGEL WREN DATE: 01/06/17 REPORT STATUS : Draft TRANSCRIBED BY: ZULEYKA DATE: 01/06/17 Luis Angel Wren M.D. / [id number] CC: Luis Angel Wren M.D.
[2017-01-07 05:00] LABS: INTERNATIONAL NORMAL RATI 1.2 UNITS (-); PARTIAL THROMBO TIME 36.2 SEC (22.5-37.2); PROTIME (NOT ORD) 14.7 SEC (12.0-14.5)
[2017-01-07 05:02] LABS: HEMOGLOBIN 7.4 g/dL (12.0-16.0); MEAN CORPUS HGB CONC 29.6 g/dL (32.0-36.0); MEAN CORPUSCULAR HEMOGLOB 33.6 pg (26.0-34.0); MEAN CORPUSCULAR VOLUME 113.6 fL (80-100); MEAN PLATELET VOLUME 11.4 fL (9.2-13.0); NUCLEATED RED BLOOD CELLS 0.5 /100WBC (0-0); PLATELET COUNT 88 10/3/uL (150-400); RBC DISTRIBUTION WIDTH 16.4 % (12.0-16.0); WHITE BLOOD CELLS 5.1 10/3/uL (4.5-10.5)
[2017-01-07 05:05] LABS: MANUAL DIFF YES %
[2017-01-07 05:10] LABS: BUN (BLOOD UREA NITROGEN) 38 MG/DL (6-23); CALCIUM, SERUM 8.7 MG/DL (8.5-10.4); CHLORIDE, SERUM 110 MMOL/L (96-112); CO2 (CARBON DIOXIDE) 24 MMOL/L (24-34); CREATININE 1.89 MG/DL (0.55-1.02); GFR AFRICAN AMERICAN 30 ML/MIN (>=60); GFR NON AFRICAN AMERICAN 26 ML/MIN (>=60); GLUCOSE, SERUM 70 MG/DL (60-99); POTASSIUM, SERUM 4.7 MMOL/L (3.5-5.3); SODIUM, SERUM 143 MMOL/L (135-148)
[2017-01-07 07:41] LABS: PLATELET ESTIMATE DEC (ADEQUATE); RBC MORPHOLOGY ABN (NORMAL)
== END 2017-01-08 11:22 | disposition home or self-care (01) | DRG 243 ==
LOC: ENRESERVTM → ENRESERVDT → ENRESERV → SSU1 20:31 → CCU 20:31 → SSU2 20:31 → CCU 21:47 → SSU1 01-07 13:04
PROVIDERS: Internal Medicine Cardiovascular Disease
PROC: 0JH604Z Insertion of Pacemaker, Single Chamber into Chest Subcutaneous Tissue and Fascia, Open Approach (ICD-10-PCS; principal; 2017-01-06)
PROC: 02HK3JZ Insertion of Pacemaker Lead into Right Ventricle, Percutaneous Approach (ICD-10-PCS; 2017-01-06)
DX: I44.2 Atrioventricular block, complete (principal); N18.4 Chronic kidney disease, stage 4 (severe); I35.0 Nonrheumatic aortic (valve) stenosis; E11.22 Type 2 diabetes mellitus with diabetic chronic kidney disease; I48.0 Paroxysmal atrial fibrillation; E78.5 Hyperlipidemia, unspecified; I12.9 Hypertensive chronic kidney disease with stage 1 through stage 4 chronic kidney disease, or unspecified chronic kidney disease; I25.10 Atherosclerotic heart disease of native coronary artery without angina pectoris; Z95.4 Presence of other heart-valve replacement; Z79.01 Long term (current) use of anticoagulants; Z85.528 Personal history of other malignant neoplasm of kidney; Z90.5 Acquired absence of kidney
CPT/HCPCS: 33207; 33210; 71010; 80048; 82962; 83735; 85025; 85610; 85730; 87641; 93005; A9270-GY; C1786; C1892; C1894; C1898; J0690; J2250; J2370; J3010; P9045; P9047